=== PATIENT | male | born 1970 | race Caucasian/White ===

== ENCOUNTER 2024-01-17 02:05 | Emergency (ER) | payer MEDICAID ==
[~2024-01-17] VITALS: Ht 172.7 cm; Wt 84.0 kg
[2024-01-17] MEDS ORDERED: SODIUM CHLORIDE 0.9% 1,000 ML IV ONE (02:15)
[2024-01-17 02:17] VITALS: BP 127/81; PULSE 84; RESP 18; TEMP 97.1; O2SAT 99
== END 2024-01-17 03:02 | disposition left against medical advice (07) ==
LOC: ER 02:59
DX: F10.129 Alcohol abuse with intoxication, unspecified (principal); Y90.9 Presence of alcohol in blood, level not specified
CPT/HCPCS: 99283; J7030